=== PATIENT | female | born 1955 | race Caucasian/White ===

== ENCOUNTER 2024-05-01 10:33 | Outpatient (CLI) | payer OTHER | END 2024-05-01 10:44 | disposition home or self-care (01) | LOC: TOM 10:33 | PROVIDERS: ATTEND Internal Medicine Gastroenterology | DX: K57.92 Diverticulitis of intestine, part unspecified, without perforation or abscess without bleeding (principal) ==

== ENCOUNTER 2024-11-27 08:28 | Outpatient (CLI) | payer OTHER | END 2024-11-27 08:30 | disposition home or self-care (01) | LOC: TOM 08:28 | PROVIDERS: ATTEND Internal Medicine Gastroenterology | DX: K57.90 Diverticulosis of intestine, part unspecified, without perforation or abscess without bleeding (principal); R19.7 Diarrhea, unspecified ==